=== PATIENT | male | born 1940 | race Caucasian/White ===

== ENCOUNTER 2018-03-09 01:15 | Inpatient (IN) | payer OTHER ==
[2018-03-09] VITALS (60 sets, daily range): BP systolic 76–137; BP diastolic 41–73
[~2018-03-09] VITALS: Ht 172.7 cm; Wt 72.1 kg
--- NOTE | ~2018-03-09 | HC ---
[facility] [place] [address] CONSULTATION Name: COLLEEN WADSWORTH Room #: 247-P ADM IN ..#: [id number] Admission: 03/09/18 Attend Phys: Renetta John MD Discharge: Date of : 36 Report #: [id number] THIS REPORT FOR: //name// CC: Joby John DATE OF SERVICE: 03/09/2018 CONSULTATION: Infectious diseases. 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 The patient was at his jail and for the last 3 days, had a reduced mental status from his baseline. He normally is able to mouth words and express himself and eat from his wheelchair. He stopped eating and became less responsive. The patient was transferred to the Emergency Room where he was diagnosed as being septic. He was admitted to the hospital to the ICU. Infectious disease consultation was requested. PAST MEDICAL HISTORY: Significant for diabetes, hypertension and hyperlipidemia. The patient has cancer of the bladder and has a permanent nephrostomy. He was on Cipro 250 mg p.o. b.i.d. when he came to the hospital. The patient has a past history of a stroke with left hemiplegia. FAMILY HISTORY: Noncontributory. SOCIAL HISTORY: The patient is , but currently requires jail confinement because of his debility from his previous conditions. REVIEW OF SYSTEMS: Unavailable as the patient is really not able to communicate. MEDICATION RECONCILIATION: Current medications Include vancomycin 500 mg every 24 hours, sliding scale insulin drip, morphine p.r.n., lorazepam 1-2 mg IV p.r.n., norepinephrine drip p.r.n., Zosyn 3.375 q.12 hours, epinephrine 4 mg p.r.n., vasopressin 20 units p.r.n. hypotension. Morphine p.r.n. agitation. Levaquin x 1, magnesium x 1. The Cipro has been discontinued. PHYSICAL EXAMINATION: GENERAL: The patient appears critically ill, but stable, comfortable, not in any distress. VITAL SIGNS: Show the patient is afebrile since coming to the hospital, his blood pressure was as low as 80/50, is now up to 96/55 and all the pressors have been discontinued for approximately 5 hours from the time of my examination. SKIN: The patient's skin is very cool. NEUROLOGIC: He is awake and alert. [address] [address] CONSULTATION Name: COLLEEN WADSWORTH Room #: [address] [place] [address] [place] [facility]#: [id number] Admission: 03/09/18 Attend Phys: Renetta John MD Discharge: Date of : 36 Report #: [id number] ENT: Unremarkable. HEART: Sounds S1, S2. LUNGS: Clear. He has a port on the right chest, which appears unremarkable. ABDOMEN: Demonstrates a nephrostomy with cloudy urine, is thin, soft, without organomegaly. EXTREMITIES: Demonstrate the left hemiparesis, but otherwise unremarkable. LABORATORY DATA: Shows white count initially was 15.6, now down to 12.9. Hemoglobin is down from 10.3-8.8 with hydration. Hematocrit 26.7%, platelets 146,000. Electrolytes are normal. BUN 141, creatinine 5.7, glucose 195. Liver function tests are normal. The blood gases showed a marked acidosis with pH 7.02, with a pO2 of 26, glucose was 134 on 2 liters. The chest x-ray was clear. Urinalysis was packed with white cells. The amylase and lipase were elevated at 280 and 2014 respectively. The BNP was elevated at 5770. Chest x-ray was clear. In summary, the patient who presents with hypotension and sepsis. Workup has demonstrated severe acidosis with inadequate respiratory compensation, elevated amylase and lipase, elevated BNP and positive urinalysis in the setting of a nephrostomy. Nephrostomy is always have mucus and white cells as it is often an ileal bladder constructed from a mucous membrane. However, the nephrostomy is also very prone to be a source of urinary tract infection as well. This is most likely cause of sepsis. The elevated amylase and lipase are notable. At this point in time, the ER began the patient on vancomycin, Zosyn and Levaquin. The vancomycin and Levaquin were given as an one-time dose with his renal failure. The vancomycin probably will last at least 3-4 days. We should continue the Zosyn. I would like to do a followup CBC, chest x-ray and BNP, lactate, amylase and lipase, chest x-ray and also check a random cortisol. We will await results of cultures of blood and urine as well as followup chest x-ray. I suspect we are dealing with urosepsis, which I hope will respond quickly to the broad spectrum antibiotic therapy. I will be happy to continue to follow the patient through the weekend until Dr. Gregory returns on Sunday. <ELECTRONICALLY SIGNED> By: Rene Dunn MD 03/10/18 [id number] 1224 Rene Dunn MD /nt
--- NOTE | ~2018-03-09 | HC ---
[facility] [place] [address] CONSULTATION Name: COLLEEN DING Room #: 247-P ADM IN M.R.#: [id number] Admission: 03/09/18 Attend Phys: Renetta John MD Discharge: Date of : 36 Report #: [id number] THIS REPORT FOR: //name// CC: Joby John DATE OF SERVICE: 03/09/2018 REFERRING PHYSICIAN: Dr. John. REASON FOR REFERRAL: Severe sepsis. HISTORY OF PRESENT ILLNESS: The patient is an 78-year-old gentleman who was brought to Emergency Room with altered mental status. He was felt to be septic. A pulmonary critical care consultation was requested. The patient has an extensive medical history. The patient was recently found to have bladder cancer. He underwent extensive surgery removing his bladder along with pelvic dissection, nephrostomy tube placement. According to the family, he had a difficult postoperative course where he required jail stay. The patient also has a history of hypertension, diabetes mellitus, history of cerebrovascular accident. Currently, he is nonverbal. He is somnolent. Since admission, review of laboratory data shows profound metabolic acidosis, acute kidney injury, electrolyte imbalance including hypocalcemia, magnesemia. UA was positive for bacteria. He is hypotensive and hypoxic. PAST MEDICAL HISTORY: As mentioned above. It is also notable for weakness and debility since his extensive surgery. ALLERGIES: None to medications. MEDICATIONS: From the jail were reviewed. This includes Cipro, Lovenox, senna, aspirin, Lipitor, Celexa, Neurontin, Protonix, Restoril, Tradjenta, Glucotrol, Imodium, Dulcolax, oxycodone, metoprolol, Zofran. FAMILY HISTORY: Noncontributory. SOCIAL HISTORY: He is . No history of tobacco or alcohol use. MEDICAL DIRECTIVE: He is a DNR. REVIEW OF SYSTEMS: Deferred as the patient is very somnolent at this time. PERTINENT LABORATORY DATA: Lactic acid 0.7. B-type natriuretic peptide BNP is [address] [address] CONSULTATION Name: ANILA DINGJayesh Gonzalez Room #: 247-P [facility] IN [facility].#: [id number] Admission: 03/09/18 Attend Phys: Renetta John MD Discharge: Date of : 36 Report #: [id number] head was notable for old right MCA infarct, no acute changes. Chest x-ray was grossly unremarkable. Sodium 144, potassium 4.3, chloride 116, CO2 is 9, BUN is 154, creatinine 6.2. Liver enzymes are mildly abnormal. WBC 15,600 without a significant left shift. Hemoglobin 10.3 and platelets are normal. Hematocrit is normal. Magnesium 0.9. Arterial blood gas revealed pH 7.02, pCO2 of 26, pO2 of 134 on 2 liters of O2. IMPRESSION: 1. Profound metabolic acidosis, renal failure in this 78-year-old white male with a recent diagnosis of bladder carcinoma, undergoing bladder resection, nephrostomy tube placement. The patient was felt to have urinary tract infection. He is hypotensive. 2. Function of metabolic acidosis, likely related to profound sepsis, hypotension leading to acidosis. Of note, lactic acid is only 0.7. 3. Acute hypoxic respiratory failure due to severe sepsis. Chest x-ray is relatively clear, though this is likely temporary given severe sepsis. 4. Acute kidney injury. Suspect chronic kidney disease with profound metabolic acidosis mentioned above. 5. Severe protein-calorie malnutrition. 6. Anemia due to chronic disease. 7. Recent diagnosis of bladder carcinoma, undergoing surgical resection, nephrostomy tube. This may be playing a role in acid base disorder. 8. Hypertension. 9. Diabetes. 10. History of cerebrovascular accident. 11. Hypotension. Suspect in part due to volume depletion along with severe sepsis. 12. Encephalopathy, likely due to severe sepsis, toxic and metabolic. RECOMMENDATION: Agree with sepsis protocol, IV fluids, broad spectrum antibiotics, correct metabolic acidosis with bicarb though this may be difficult given ongoing hypotension. is at the bedside. She confirms the patient is a DNR. Understands that overall outlook is poor. She desires comfort care. Thank you for this consultation. <ELECTRONICALLY SIGNED> By: Milton Diamond MD 03/10/18 1624 [id number] 0021 Milton Diamond MD /nt
--- NOTE | ~2018-03-09 | EKG ---
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
[2018-03-09] MEDS ORDERED: CIPRO250 M1 PO (01:43)
[2018-03-09] MEDS ORDERED: ENOXAPARIN30 MG/0.1 SUBQ (01:43)
[2018-03-09] MEDS ORDERED: TYLENOL325 MG PO (01:43)
[2018-03-09] MEDS ORDERED: SENNA8.6 MG PO (01:44)
[2018-03-09] MEDS ORDERED: ASPIR 8181 MG PO (01:44)
[2018-03-09] MEDS ORDERED: LIPITOR 20 MG T20 M1 PO (01:44)
[2018-03-09] MEDS ORDERED: CELEXA20 MG PO (01:45)
[2018-03-09] MEDS ORDERED: NEURONTIN 300300 M1 PO (01:45)
[2018-03-09] MEDS ORDERED: TRADJENTA5 MG (01:46)
[2018-03-09] MEDS ORDERED: PROTONIX40 M2 PO (01:46)
[2018-03-09] MEDS ORDERED: GLIPIZIDE 10 MG10 MG PO (01:46)
[2018-03-09] MEDS ORDERED: RESTORIL30 MG PO (01:46)
[2018-03-09] MEDS ORDERED: ACIDOPHILUS1 EACH PO (01:47)
[2018-03-09] MEDS ORDERED: LOPERAMIDE 2 MG2 M1 PO (01:47)
[2018-03-09] MEDS ORDERED: BISACODYL SUPP10 MG RECTAL (01:48)
[2018-03-09] MEDS ORDERED: OXYCODONE HCL 55 MG PO (01:48)
[2018-03-09] MEDS ORDERED: TOPROL XL25 MG PO (01:49)
[2018-03-09] MEDS ORDERED: ONDANSETRON HCL4 M2 PO (01:50)
[2018-03-09 01:51] LABS: URINE BILIRUBIN NEGATIVE (Negative); URINE BLOOD 2+ (Negative); URINE CLARITY TURBID; URINE COLOR YELLOW; URINE GLUCOSE-RANDOM* NEGATIVE (Negative); URINE KETONES NEGATIVE (Negative); URINE NITRITE-REFLEX NEGATIVE (Negative); URINE PROTEIN (DIPSTICK) 2+ (Negative); URINE UROBILINOGEN 0.2 E.U./dl (0.2-1.0)
[2018-03-09 01:53] LABS: ABSOLUTE NEUTROPHILS 13.9 thou/uL (1.4-8.2); BASOPHILS 0.3 % (0.0-2.0); EOSINOPHILS 0.1 % (0.0-3.0); HEMATOCRIT 32.6 % (42.0-52.0); HEMOGLOBIN 10.3 gm/dL (14.0-18.0); LYMPHOCYTES 2.9 % (24.0-44.0); MCH 29.4 pg (26.0-34.0); MCHC 31.7 g/dL (28.0-37.0); MCV 92.6 fL (80.0-100.0); MONOCYTES 7.8 % (1.0-8.0); PLATELET COUNT 209 thou/uL (150-400); POLYS 88.9 % (36.0-66.0); RBC 3.52 mil/uL (4.50-6.00); RDW 17.3 % (10.5-14.5); URINE LEUKOCYTES-REFLEX 2+ (Negative); WBC 15.6 thou/uL (4.0-11.0)
[2018-03-09 01:59] LABS: AMORPHOUS URATES Many /LPF (None Seen); AMP/METHAMP Negative (Negative); BACTERIA-REFLEX 1-9 Few /HPF (None Seen); BARBITURATES Negative (Negative); BENZODIAZEPINES POSITIVE (Negative); CASTS None Seen /LPF (None Seen); COCAINE Negative (Negative); METHADONE Negative (Negative); MUCUS >6 Heavy strn/LPF (None Seen); OPIATES Negative (Negative); PCP Negative (Negative); SQUAMOUS 0-3 Few /LPF (0-3); URINE RBC >20 Many /HPF (0-2); WBC CLUMPS Packed (None Seen); YEAST-REFLEX Present (None Seen)
[2018-03-09 02:03] LABS: ANION GAP 23 mmol/L (7-16); BUN 154 mg/dL (7-18); CALCIUM 7.5 mg/dL (8.5-10.1); CHLORIDE 113 mmol/L (98-107); CO2 9 mmol/L (21-32); CREATININE 6.2 mg/dL (0.7-1.3); GLUCOSE 111 mg/dL (74-106); POTASSIUM 4.6 mmol/L (3.5-5.1); SODIUM 145 mmol/L (136-145)
[2018-03-09 02:09] LABS: ALBUMIN 2.5 g/dL (3.4-5.0); SGOT 10 U/L (15-37); SGPT 19 U/L (30-65); TOTAL BILIRUBIN 0.3 mg/dL (<0.1-1.0); TROPONIN-I <0.06 ng/mL (<0.06)
[2018-03-09 02:10] LABS: MAGNESIUM 0.9 mg/dL (1.8-2.4)
[2018-03-09 04:53] LABS: BE(vivo) -22.7 mmol/L (-2 to +3); HCO3 6.7 mmol/L (22.0-26.0); PCO2 26.3 mmHg (35.0-45.0); PO2 134.2 mmHg (80.0-100.0); sO2 97.2 % (92.0-98.0)
[2018-03-09 04:55] LABS: pH 7.023 (7.360-7.450)
[2018-03-09 05:07] LABS: HEMATOCRIT 26.7 % (42.0-52.0); HEMOGLOBIN 8.8 gm/dL (14.0-18.0); MCH 30.6 pg (26.0-34.0); PLATELET COUNT 146 thou/uL (150-400); RBC 2.87 mil/uL (4.50-6.00); WBC 12.9 thou/uL (4.0-11.0)
[2018-03-09 05:18] LABS: APTT 34.7 Seconds (24.5-32.8); FIBRINOGEN 186.6 mg/dL (210-360); INR 1.2; PROTIME 12.2 Seconds (9.3-11.4)
[2018-03-09 05:22] LABS: AMYLASE 280 U/L (25-115); LIPASE 2014 U/L (73-393)
[2018-03-09 05:46] LABS: NUCLEATED RBCS 1 /100WBC
[2018-03-09 05:47] LABS: ANISOCYTOSIS 1+; BURR CELLS 1+
[2018-03-09 09:22] LABS: CALCIUM 7.2 mg/dL (8.5-10.1); CREATININE 5.7 mg/dL (0.7-1.3); POTASSIUM 4.3 mmol/L (3.5-5.1)
[2018-03-09 17:32] LABS: CALCIUM 7.1 mg/dL (8.5-10.1); CREATININE 5.7 mg/dL (0.7-1.3); POTASSIUM 3.7 mmol/L (3.5-5.1)
[2018-03-10] VITALS (97 sets, daily range): BP systolic 73–124; BP diastolic 31–73
[2018-03-10 05:11] LABS: HEMATOCRIT 24.2 % (42.0-52.0); HEMOGLOBIN 8.2 gm/dL (14.0-18.0); MCH 30.5 pg (26.0-34.0); MCV 89.7 fL (80.0-100.0); PLATELET COUNT 134 thou/uL (150-400); RDW 16.6 % (10.5-14.5); WBC 10.8 thou/uL (4.0-11.0)
[2018-03-10 05:22] LABS: CALCIUM 6.7 mg/dL (8.5-10.1); CREATININE 5.1 mg/dL (0.7-1.3)
[2018-03-10 05:53] LABS: ANISOCYTOSIS 1+; BURR CELLS 1+
[2018-03-11] VITALS (71 sets, daily range): BP systolic 68–138; BP diastolic 31–71
[2018-03-11 05:02] LABS: HEMOGLOBIN 7.6 gm/dL (14.0-18.0); MCH 29.7 pg (26.0-34.0); MCHC 33.2 g/dL (28.0-37.0); MCV 89.4 fL (80.0-100.0); PLATELET COUNT 118 thou/uL (150-400); RBC 2.57 mil/uL (4.50-6.00); RDW 16.7 % (10.5-14.5); WBC 10.6 thou/uL (4.0-11.0)
[2018-03-11 05:09] LABS: CALCIUM 6.8 mg/dL (8.5-10.1); CREATININE 5.1 mg/dL (0.7-1.3); POTASSIUM 3.2 mmol/L (3.5-5.1)
[2018-03-11 05:36] LABS: ABSOLUTE NEUTROPHILS 9.2 thou/uL (1.4-8.2)
[2018-03-11 05:37] LABS: POLYCHROMASIA SLIGHT
[2018-03-11 05:38] LABS: ANISOCYTOSIS 1+
[2018-03-12 20:11] VITALS: BP 90/57
[2018-03-13 07:50] VITALS: BP 83/52
[2018-03-13] MEDS ORDERED: MSL20MG/ML PO (15:48)
[2018-03-13] MEDS ORDERED: LORAZEPAM 22 MG/1 ML SUBLING (15:49)
== END 2018-03-13 16:43 | disposition hospice, inpatient (51) | DRG 871 ==
LOC: ER 01:15 → ICU 02:34 → EROBS 02:34 → ICU 03:48
PROVIDERS: Emergency Medicine; Internal Medicine
DX: A41.9 Sepsis, unspecified organism (principal); G92 Toxic encephalopathy; J96.01 Acute respiratory failure with hypoxia; E43 Unspecified severe protein-calorie malnutrition; R65.21 Severe sepsis with septic shock; K85.90 Acute pancreatitis without necrosis or infection, unspecified; N17.9 Acute kidney failure, unspecified; N39.0 Urinary tract infection, site not specified; I69.354 Hemiplegia and hemiparesis following cerebral infarction affecting left non-dominant side; I10 Essential (primary) hypertension; E78.5 Hyperlipidemia, unspecified; K21.9 Gastro-esophageal reflux disease without esophagitis; E11.9 Type 2 diabetes mellitus without complications; E83.51 Hypocalcemia; E83.42 Hypomagnesemia; Z66 Do not resuscitate; D63.8 Anemia in other chronic diseases classified elsewhere; I95.9 Hypotension, unspecified; T68.XXXA Hypothermia, initial encounter; I25.10 Atherosclerotic heart disease of native coronary artery without angina pectoris; Z79.899 Other long term (current) drug therapy; Z28.21 Immunization not carried out because of patient refusal; Z85.51 Personal history of malignant neoplasm of bladder; Z68.24 Body mass index [BMI] 24.0-24.9, adult; Z93.6 Other artificial openings of urinary tract status
CPT/HCPCS: 10078